=== PATIENT | male | born 1960 | race African-American/Black ===

== ENCOUNTER 2023-01-12 22:10 | Inpatient (IN) | payer OTHER ==
[2023-01-12 22:36] VITALS: BMI 22.1
[2023-01-13] MEDS ORDERED: IBUPROFEN 600 MG TABLET (FP) PO PRN (01:15)
[2023-01-13] MEDS ORDERED: LOPERAMIDE HCL 2 MG CAPSULE PO PRN (01:15)
[2023-01-13] MEDS ORDERED: DICYCLOMINE HCL 10 MG CAPSULE PO PRN (01:15)
[2023-01-13] MEDS ORDERED: BENZOCAINE/MENTHOL (CHLORASEPTIC ) LOZENGE MM PRN (01:15)
[2023-01-13] MEDS ORDERED: POLYETHYLENE GLYCOL (HEALTHYLAX) 3350 17 GM PACKET PO PRN (01:15)
[2023-01-13] MEDS ORDERED: MAGNESIUM HYDROX 2400MG/30ML ORAL SUSPENSION 30 ML CUP PO PRN (01:15)
[2023-01-13] MEDS ORDERED: ONDANSETRON *ODT* 4 MG TABLET SL PRN (01:15)
[2023-01-13] MEDS ORDERED: NICOTINE 7 MG/24 HOURS TOPICAL PATCH TD PRN (01:15)
[2023-01-13] MEDS ORDERED: IBUPROFEN 400 MG TABLET (FP) PO PRN (01:15)
[2023-01-13] MEDS ORDERED: NALOXONE HCL (KLOXXADO) 8 MG SPRAY NS PRN (01:15)
[2023-01-13] MEDS ORDERED: BENZONATATE 200 MG CAPSULE PO PRN (01:15)
[2023-01-13] MEDS ORDERED: BISMUTH SUBSALICYLATE 524 MG/30 ML PO PRN (01:15)
[2023-01-13] MEDS ORDERED: BACLOFEN 10 MG TABLET (FP) PO PRN (01:15)
[2023-01-13] MEDS ORDERED: NALOXONE HCL 0.4 MG/ML VIAL IM PRN (01:15)
[2023-01-13] MEDS ORDERED: ACETAMINOPHEN 325 MG TABLET (FP) PO PRN (01:15)
[2023-01-13] MEDS ORDERED: MAG HYDROX/AL HYDROX/SIMETH 30 ML UNIT-DOSE CUP PO PRN (01:15)
[2023-01-13] MEDS ORDERED: NICOTINE POLACRILEX 4 MG GUM BUC PRN (01:15)
[2023-01-13] MEDS ORDERED: guaiFENesin 600 MG TABLET.ER (FP) PO PRN (01:15)
[2023-01-13] MEDS: hydrOXYzine PAMOATE 25 MG CAPSULE (FP) PO PRN (02:45)
[2023-01-13] MEDS ORDERED: METOPROLOL TARTRATE 25 MG TABLET (FP) ONE (02:59)
[2023-01-13] MEDS: APIXABAN 5 MG TABLET PO SCH ×2 (09:53→23:55)
[2023-01-13] MEDS: FUROSEMIDE 20 MG TABLET (FP) PO SCH (09:53)
[2023-01-13] MEDS: PRENATAL VITAMINS W/ FOLIC ACID TABLET (FP) PO SCH (09:53)
[2023-01-13] MEDS: SPIRONOLACTONE 25 MG TABLET PO SCH (09:53)
[2023-01-13] MEDS: METOPROLOL TARTRATE 50 MG TABLET (FP) PO SCH (09:53)
[2023-01-13] MEDS ORDERED: FUROSEMIDE 20 MG TABLET (FP) PO SCH (10:00)
[2023-01-13] MEDS ORDERED: METOPROLOL TARTRATE 50 MG TABLET (FP) PO SCH (10:00)
[2023-01-13] MEDS ORDERED: LORazepam 1 MG TABLET PO PRN (10:57)
[2023-01-13] MEDS: LORazepam 2 MG TABLET PO SCH ×3 (11:42→23:55)
[2023-01-13] MEDS: MELATONIN 5 MG TABLETS PO SCH (23:55)
[2023-01-13] MEDS: THIAMINE HCL 100 MG TABLET (FP) PO SCH (23:55)
[2023-01-14] MEDS: LORazepam 2 MG TABLET PO SCH ×4 (05:56→22:44)
[2023-01-14] MEDS: METOPROLOL TARTRATE 50 MG TABLET (FP) PO SCH (10:28)
[2023-01-14] MEDS: FUROSEMIDE 20 MG TABLET (FP) PO SCH (10:28)
[2023-01-14] MEDS: APIXABAN 5 MG TABLET PO SCH ×2 (10:28→22:44)
[2023-01-14] MEDS: PRENATAL VITAMINS W/ FOLIC ACID TABLET (FP) PO SCH (10:28)
[2023-01-14] MEDS: SPIRONOLACTONE 25 MG TABLET PO SCH (10:28)
[2023-01-14] MEDS ORDERED: SACUBITRIL/VALSARTAN 49 MG-51 MG TABLET PO SCH (11:30)
[2023-01-14 11:56] LABS: POTASSIUM 3.9 mmol/L (3.5-5.1)
[2023-01-14 11:57] LABS: HEMATOCRIT 43.7 % (35.4-49); HEMOGLOBIN 14.5 GM/dL (11.7-16.9); MCH 29.4 pg (25.7-33.7); MCHC 33.2 g/dl (32.0-35.9); MEAN CELL VOLUME 88.6 fl (80-96); MEAN PLT VOLUME 8.5 fl (7.5-11.1); PLATELET COUNT 187 10^3/uL (134-434); RBC 4.93 M/mm3 (4.00-5.60); RDW 13.5 % (11.9-15.9); WHITE BLOOD COUNT 10.2 K/mm3 (4.0-10.0)
[2023-01-14 12:00] LABS: ALBUMIN 3.3 g/dl (3.4-5.0); BLOOD UREA NITROGEN 18.2 mg/dL (7-18)
[2023-01-14 12:03] LABS: CREATININE 0.9 mg/dL (0.55-1.3)
[2023-01-14 12:04] LABS: BILIRUBIN,TOTAL 0.2 mg/dL (0.2-1); TOT PROT 6.4 g/dl (6.4-8.2)
[2023-01-14] MEDS: THIAMINE HCL 100 MG TABLET (FP) PO SCH (22:44)
[2023-01-14] MEDS: MELATONIN 5 MG TABLETS PO SCH (22:44)
[2023-01-14] MEDS: SACUBITRIL/VALSARTAN 49 MG-51 MG TABLET PO SCH (22:45)
[2023-01-15] MEDS: LORazepam 1 MG TABLET PO SCH ×4 (05:54→22:33)
[2023-01-15] MEDS: SPIRONOLACTONE 25 MG TABLET PO SCH (10:12)
[2023-01-15] MEDS: APIXABAN 5 MG TABLET PO SCH ×2 (10:12→22:32)
[2023-01-15] MEDS: FUROSEMIDE 20 MG TABLET (FP) PO SCH (10:12)
[2023-01-15] MEDS: METOPROLOL TARTRATE 50 MG TABLET (FP) PO SCH (10:13)
[2023-01-15] MEDS: PRENATAL VITAMINS W/ FOLIC ACID TABLET (FP) PO SCH (10:14)
[2023-01-15] MEDS: SACUBITRIL/VALSARTAN 49 MG-51 MG TABLET PO SCH ×2 (10:14→22:31)
[2023-01-15] MEDS: LACTULOSE 20 GM/30 ML UDC (FOR ORAL USE ONLY) PO SCH ×2 (14:02→22:31)
[2023-01-15] MEDS: THIAMINE HCL 100 MG TABLET (FP) PO SCH (22:32)
[2023-01-15] MEDS: MELATONIN 5 MG TABLETS PO SCH (22:32)
[2023-01-16] MEDS ORDERED: LORazepam 0.5 MG TABLET PO PRN
[2023-01-16] MEDS: LORazepam 0.5 MG TABLET PO SCH ×4 (06:00→22:14)
[2023-01-16] MEDS: LACTULOSE 20 GM/30 ML UDC (FOR ORAL USE ONLY) PO SCH ×3 (06:03→22:15)
[2023-01-16] MEDS: FUROSEMIDE 20 MG TABLET (FP) PO SCH (10:08)
[2023-01-16] MEDS: SPIRONOLACTONE 25 MG TABLET PO SCH (10:08)
[2023-01-16] MEDS: PRENATAL VITAMINS W/ FOLIC ACID TABLET (FP) PO SCH (10:08)
[2023-01-16] MEDS: SACUBITRIL/VALSARTAN 49 MG-51 MG TABLET PO SCH ×2 (10:08→22:15)
[2023-01-16] MEDS: APIXABAN 5 MG TABLET PO SCH ×2 (10:08→22:14)
[2023-01-16] MEDS: METOPROLOL TARTRATE 50 MG TABLET (FP) PO SCH (10:08)
[2023-01-16] MEDS ORDERED: cloNIDine HCL 0.1 MG TABLET PO ONE (15:39)
[2023-01-16] MEDS ORDERED: METOPROLOL TARTRATE 25 MG TABLET (FP) PO ONE (18:36)
[2023-01-16] MEDS: MELATONIN 5 MG TABLETS PO SCH (22:14)
[2023-01-16] MEDS: THIAMINE HCL 100 MG TABLET (FP) PO SCH (22:14)
[2023-01-17] MEDS ORDERED: LORazepam 0.5 MG TABLET PO ONE (05:00)
[2023-01-17] MEDS: LACTULOSE 20 GM/30 ML UDC (FOR ORAL USE ONLY) PO SCH (05:15)
[2023-01-17] MEDS: hydrOXYzine PAMOATE 25 MG CAPSULE (FP) PO PRN (05:17)
[2023-01-17 07:10] VITALS: RESP 18
[2023-01-17] MEDS: SPIRONOLACTONE 25 MG TABLET PO SCH (09:18)
[2023-01-17] MEDS: SACUBITRIL/VALSARTAN 49 MG-51 MG TABLET PO SCH (09:18)
[2023-01-17] MEDS: APIXABAN 5 MG TABLET PO SCH (09:18)
[2023-01-17] MEDS: PRENATAL VITAMINS W/ FOLIC ACID TABLET (FP) PO SCH (09:18)
[2023-01-17] MEDS: METOPROLOL TARTRATE 50 MG TABLET (FP) PO SCH (09:18)
[2023-01-17] MEDS: FUROSEMIDE 20 MG TABLET (FP) PO SCH (09:19)
[2023-01-17 09:57] VITALS: BP 134/86; PULSE 85; TEMP 97.5
== END 2023-01-17 11:39 | disposition other institution (70) | DRG 774 ==
LOC: YASAS 22:10 → SUATTDRO 22:10 → Y3N 01-13 02:23
PROVIDERS: ADMIT Allergy & Immunology; ATTEND Surgery
PROC: HZ2ZZZZ Detoxification Services for Substance Abuse Treatment (ICD-10-PCS; principal; 2023-01-13)
DX: F10.230 Alcohol dependence with withdrawal, uncomplicated (principal); F14.20 Cocaine dependence, uncomplicated; F17.210 Nicotine dependence, cigarettes, uncomplicated; E72.20 Disorder of urea cycle metabolism, unspecified; I11.0 Hypertensive heart disease with heart failure; I50.9 Heart failure, unspecified; Z95.810 Presence of automatic (implantable) cardiac defibrillator; Z79.01 Long term (current) use of anticoagulants; Z88.0 Allergy status to penicillin
CPT/HCPCS: 36415; 80053; 80307; 82140; 85027; 86593; 86780; 87635; 87811; 93005; 93010; J0475

== ENCOUNTER 2023-01-17 11:38 | Inpatient (IN) | payer OTHER ==
[2023-01-17] MEDS ORDERED: FLU VACCINE (FLULAVAL) PF 60 MCG/0.5 ML SYRINGE 2023-2024 IM ONE (11:56)
[2023-01-17] MEDS ORDERED: PNEUMOC 20-VAL CONJ-DIP CRM/PF 0.5 ML SYRINGE IM ONE (11:57)
[2023-01-17] MEDS ORDERED: BENZOCAINE/MENTHOL (CHLORASEPTIC ) LOZENGE MM PRN (13:03)
[2023-01-17] MEDS ORDERED: BENZONATATE 200 MG CAPSULE PO PRN (13:03)
[2023-01-17] MEDS ORDERED: AMMONIUM LACTATE 12% LOTION 225 GM BOTTLE TP PRN (13:03)
[2023-01-17] MEDS ORDERED: POLYETHYLENE GLYCOL (HEALTHYLAX) 3350 17 GM PACKET PO PRN (13:03)
[2023-01-17] MEDS ORDERED: BACLOFEN 10 MG TABLET (FP) PO PRN (13:03)
[2023-01-17] MEDS ORDERED: guaiFENesin 600 MG TABLET.ER (FP) PO PRN (13:03)
[2023-01-17] MEDS ORDERED: NALOXONE HCL 0.4 MG/ML VIAL IVPUSH PRN (13:03)
[2023-01-17] MEDS ORDERED: IBUPROFEN 600 MG TABLET (FP) PO PRN (13:03)
[2023-01-17] MEDS ORDERED: MAG HYDROX/AL HYDROX/SIMETH 30 ML UNIT-DOSE CUP PO PRN (13:03)
[2023-01-17] MEDS ORDERED: IBUPROFEN 400 MG TABLET (FP) PO PRN (13:03)
[2023-01-17] MEDS ORDERED: ACETAMINOPHEN 325 MG TABLET (FP) PO PRN (13:03)
[2023-01-17] MEDS ORDERED: NICOTINE POLACRILEX 4 MG GUM BUC PRN (13:03)
[2023-01-17] MEDS ORDERED: MAGNESIUM HYDROX 2400MG/30ML ORAL SUSPENSION 30 ML CUP PO PRN (13:03)
[2023-01-17] MEDS ORDERED: hydrOXYzine PAMOATE 25 MG CAPSULE (FP) PO PRN (13:03)
[2023-01-17] MEDS ORDERED: NALOXONE HCL (KLOXXADO) 8 MG SPRAY NS PRN (13:03)
[2023-01-17] MEDS ORDERED: LOPERAMIDE HCL 2 MG CAPSULE PO PRN (13:03)
[2023-01-17] MEDS ORDERED: NICOTINE 14 MG/24 HOURS TOPICAL PATCH TD PRN (13:03)
[2023-01-17] MEDS ORDERED: ALBUTEROL SO4 HFA INHALER IH PRN (13:06)
[2023-01-17] MEDS: LACTULOSE 20 GM/30 ML UDC (FOR ORAL USE ONLY) PO SCH ×2 (14:26→21:22)
[2023-01-17] MEDS: MELATONIN 5 MG TABLETS PO SCH (21:21)
[2023-01-17] MEDS: THIAMINE HCL 100 MG TABLET (FP) PO SCH (21:21)
[2023-01-17] MEDS: APIXABAN 5 MG TABLET PO SCH (21:22)
[2023-01-17] MEDS: SACUBITRIL/VALSARTAN 49 MG-51 MG TABLET PO SCH (21:22)
[2023-01-18] MEDS: LACTULOSE 20 GM/30 ML UDC (FOR ORAL USE ONLY) PO SCH ×3 (07:06→21:16)
[2023-01-18] MEDS: APIXABAN 5 MG TABLET PO SCH ×2 (10:49→21:16)
[2023-01-18] MEDS: SACUBITRIL/VALSARTAN 49 MG-51 MG TABLET PO SCH ×2 (10:49→21:17)
[2023-01-18] MEDS: SPIRONOLACTONE 25 MG TABLET PO SCH (10:49)
[2023-01-18] MEDS: METOPROLOL TARTRATE 50 MG TABLET (FP) PO SCH (10:50)
[2023-01-18] MEDS: PRENATAL VITAMINS W/ FOLIC ACID TABLET (FP) PO SCH (10:50)
[2023-01-18] MEDS: FUROSEMIDE 20 MG TABLET (FP) PO SCH (10:50)
[2023-01-18] MEDS ORDERED: PNEUMOC 20-VAL CONJ-DIP CRM/PF 0.5 ML SYRINGE IM ONE (12:00)
[2023-01-18] MEDS ORDERED: FLU VACCINE (FLULAVAL) PF 60 MCG/0.5 ML SYRINGE 2023-2024 IM ONE (12:00)
[2023-01-18 13:44] LABS: HIV INTERPRETATION NEGATIVE (NEGATIVE)
[2023-01-18] MEDS: THIAMINE HCL 100 MG TABLET (FP) PO SCH (21:16)
[2023-01-18] MEDS: MELATONIN 5 MG TABLETS PO SCH (21:17)
[2023-01-19] MEDS: LACTULOSE 20 GM/30 ML UDC (FOR ORAL USE ONLY) PO SCH ×3 (06:22→21:21)
[2023-01-19] MEDS: APIXABAN 5 MG TABLET PO SCH ×2 (10:05→21:20)
[2023-01-19] MEDS: SPIRONOLACTONE 25 MG TABLET PO SCH (10:05)
[2023-01-19] MEDS: FUROSEMIDE 20 MG TABLET (FP) PO SCH (10:06)
[2023-01-19] MEDS: SACUBITRIL/VALSARTAN 49 MG-51 MG TABLET PO SCH ×2 (10:06→21:21)
[2023-01-19] MEDS: METOPROLOL TARTRATE 50 MG TABLET (FP) PO SCH (10:06)
[2023-01-19] MEDS: PRENATAL VITAMINS W/ FOLIC ACID TABLET (FP) PO SCH (10:07)
[2023-01-19] MEDS: MELATONIN 5 MG TABLETS PO SCH (21:20)
[2023-01-19] MEDS: THIAMINE HCL 100 MG TABLET (FP) PO SCH (21:20)
[2023-01-20] MEDS: LACTULOSE 20 GM/30 ML UDC (FOR ORAL USE ONLY) PO SCH ×3 (06:21→21:11)
[2023-01-20] MEDS: SACUBITRIL/VALSARTAN 49 MG-51 MG TABLET PO SCH ×2 (10:26→21:11)
[2023-01-20] MEDS: FUROSEMIDE 20 MG TABLET (FP) PO SCH (10:26)
[2023-01-20] MEDS: APIXABAN 5 MG TABLET PO SCH ×2 (10:26→21:11)
[2023-01-20] MEDS: SPIRONOLACTONE 25 MG TABLET PO SCH (10:26)
[2023-01-20] MEDS: METOPROLOL TARTRATE 50 MG TABLET (FP) PO SCH (10:26)
[2023-01-20] MEDS: PRENATAL VITAMINS W/ FOLIC ACID TABLET (FP) PO SCH (10:26)
[2023-01-20] MEDS: THIAMINE HCL 100 MG TABLET (FP) PO SCH (21:11)
[2023-01-20] MEDS: MELATONIN 5 MG TABLETS PO SCH (21:11)
[2023-01-21] MEDS: LACTULOSE 20 GM/30 ML UDC (FOR ORAL USE ONLY) PO SCH ×3 (06:36→21:22)
[2023-01-21] MEDS: APIXABAN 5 MG TABLET PO SCH ×2 (09:49→21:21)
[2023-01-21] MEDS: SPIRONOLACTONE 25 MG TABLET PO SCH (09:49)
[2023-01-21] MEDS: PRENATAL VITAMINS W/ FOLIC ACID TABLET (FP) PO SCH (09:49)
[2023-01-21] MEDS: METOPROLOL TARTRATE 50 MG TABLET (FP) PO SCH (09:49)
[2023-01-21] MEDS: SACUBITRIL/VALSARTAN 49 MG-51 MG TABLET PO SCH ×2 (09:50→21:22)
[2023-01-21] MEDS: FUROSEMIDE 20 MG TABLET (FP) PO SCH (09:51)
[2023-01-21] MEDS: THIAMINE HCL 100 MG TABLET (FP) PO SCH (21:21)
[2023-01-21] MEDS: MELATONIN 5 MG TABLETS PO SCH (21:21)
[2023-01-22] MEDS: LACTULOSE 20 GM/30 ML UDC (FOR ORAL USE ONLY) PO SCH ×3 (06:13→21:38)
[2023-01-22] MEDS: SPIRONOLACTONE 25 MG TABLET PO SCH (09:59)
[2023-01-22] MEDS: METOPROLOL TARTRATE 50 MG TABLET (FP) PO SCH (09:59)
[2023-01-22] MEDS: APIXABAN 5 MG TABLET PO SCH ×2 (09:59→21:39)
[2023-01-22] MEDS: FUROSEMIDE 20 MG TABLET (FP) PO SCH (10:00)
[2023-01-22] MEDS: SACUBITRIL/VALSARTAN 49 MG-51 MG TABLET PO SCH ×2 (10:00→21:38)
[2023-01-22] MEDS: PRENATAL VITAMINS W/ FOLIC ACID TABLET (FP) PO SCH (10:00)
[2023-01-22] MEDS: THIAMINE HCL 100 MG TABLET (FP) PO SCH (21:38)
[2023-01-22] MEDS: MELATONIN 5 MG TABLETS PO SCH (21:38)
[2023-01-23] MEDS: LACTULOSE 20 GM/30 ML UDC (FOR ORAL USE ONLY) PO SCH ×3 (06:23→21:27)
[2023-01-23] MEDS: FUROSEMIDE 20 MG TABLET (FP) PO SCH (09:44)
[2023-01-23] MEDS: APIXABAN 5 MG TABLET PO SCH ×2 (09:44→21:27)
[2023-01-23] MEDS: SPIRONOLACTONE 25 MG TABLET PO SCH (09:44)
[2023-01-23] MEDS: PRENATAL VITAMINS W/ FOLIC ACID TABLET (FP) PO SCH (09:45)
[2023-01-23] MEDS: METOPROLOL TARTRATE 50 MG TABLET (FP) PO SCH (09:45)
[2023-01-23] MEDS: SACUBITRIL/VALSARTAN 49 MG-51 MG TABLET PO SCH ×2 (09:45→21:27)
[2023-01-23] MEDS: COLLOIDAL OATMEAL 1 BAR EACH TP PRN (18:03)
[2023-01-23] MEDS: THIAMINE HCL 100 MG TABLET (FP) PO SCH (21:26)
[2023-01-23] MEDS: MELATONIN 5 MG TABLETS PO SCH (21:26)
[2023-01-24] MEDS: LACTULOSE 20 GM/30 ML UDC (FOR ORAL USE ONLY) PO SCH ×3 (06:12→21:14)
[2023-01-24] MEDS: METOPROLOL TARTRATE 50 MG TABLET (FP) PO SCH (10:24)
[2023-01-24] MEDS: SACUBITRIL/VALSARTAN 49 MG-51 MG TABLET PO SCH ×2 (10:24→21:15)
[2023-01-24] MEDS: APIXABAN 5 MG TABLET PO SCH ×2 (10:25→21:14)
[2023-01-24] MEDS: FUROSEMIDE 20 MG TABLET (FP) PO SCH (10:25)
[2023-01-24] MEDS: SPIRONOLACTONE 25 MG TABLET PO SCH (10:26)
[2023-01-24] MEDS: PRENATAL VITAMINS W/ FOLIC ACID TABLET (FP) PO SCH (10:26)
[2023-01-24] MEDS: MELATONIN 5 MG TABLETS PO SCH (21:14)
[2023-01-24] MEDS: THIAMINE HCL 100 MG TABLET (FP) PO SCH (21:14)
[2023-01-25] MEDS: LACTULOSE 20 GM/30 ML UDC (FOR ORAL USE ONLY) PO SCH ×3 (06:05→21:12)
[2023-01-25] MEDS: SACUBITRIL/VALSARTAN 49 MG-51 MG TABLET PO SCH ×2 (09:54→21:12)
[2023-01-25] MEDS: FUROSEMIDE 20 MG TABLET (FP) PO SCH (09:54)
[2023-01-25] MEDS: APIXABAN 5 MG TABLET PO SCH ×2 (09:54→21:12)
[2023-01-25] MEDS: SPIRONOLACTONE 25 MG TABLET PO SCH (09:54)
[2023-01-25] MEDS: METOPROLOL TARTRATE 50 MG TABLET (FP) PO SCH (09:55)
[2023-01-25] MEDS: PRENATAL VITAMINS W/ FOLIC ACID TABLET (FP) PO SCH (09:55)
[2023-01-25] MEDS: THIAMINE HCL 100 MG TABLET (FP) PO SCH (21:12)
[2023-01-25] MEDS: MELATONIN 5 MG TABLETS PO SCH (21:12)
[2023-01-26] MEDS: LACTULOSE 20 GM/30 ML UDC (FOR ORAL USE ONLY) PO SCH ×3 (06:35→21:21)
[2023-01-26] MEDS: METOPROLOL TARTRATE 50 MG TABLET (FP) PO SCH (09:33)
[2023-01-26] MEDS: SPIRONOLACTONE 25 MG TABLET PO SCH (09:33)
[2023-01-26] MEDS: SACUBITRIL/VALSARTAN 49 MG-51 MG TABLET PO SCH ×2 (09:33→21:21)
[2023-01-26] MEDS: PRENATAL VITAMINS W/ FOLIC ACID TABLET (FP) PO SCH (09:33)
[2023-01-26] MEDS: APIXABAN 5 MG TABLET PO SCH ×2 (09:33→21:21)
[2023-01-26] MEDS: FUROSEMIDE 20 MG TABLET (FP) PO SCH (09:33)
[2023-01-26] MEDS: THIAMINE HCL 100 MG TABLET (FP) PO SCH (21:21)
[2023-01-26] MEDS: MELATONIN 5 MG TABLETS PO SCH (21:22)
[2023-01-26] MEDS: COLLOIDAL OATMEAL 1 BAR EACH TP PRN (21:24)
[2023-01-27] MEDS: LACTULOSE 20 GM/30 ML UDC (FOR ORAL USE ONLY) PO SCH ×3 (06:37→21:39)
[2023-01-27] MEDS: PRENATAL VITAMINS W/ FOLIC ACID TABLET (FP) PO SCH (09:33)
[2023-01-27] MEDS: FUROSEMIDE 20 MG TABLET (FP) PO SCH (09:33)
[2023-01-27] MEDS: SPIRONOLACTONE 25 MG TABLET PO SCH (09:33)
[2023-01-27] MEDS: APIXABAN 5 MG TABLET PO SCH ×2 (09:33→21:39)
[2023-01-27] MEDS: METOPROLOL TARTRATE 50 MG TABLET (FP) PO SCH (09:33)
[2023-01-27] MEDS: SACUBITRIL/VALSARTAN 49 MG-51 MG TABLET PO SCH ×2 (09:33→21:39)
[2023-01-27] MEDS: THIAMINE HCL 100 MG TABLET (FP) PO SCH (21:39)
[2023-01-27] MEDS: MELATONIN 5 MG TABLETS PO SCH (21:39)
[2023-01-28] MEDS: LACTULOSE 20 GM/30 ML UDC (FOR ORAL USE ONLY) PO SCH ×3 (06:07→21:55)
[2023-01-28] MEDS: SACUBITRIL/VALSARTAN 49 MG-51 MG TABLET PO SCH ×2 (09:53→21:55)
[2023-01-28] MEDS: SPIRONOLACTONE 25 MG TABLET PO SCH (09:53)
[2023-01-28] MEDS: APIXABAN 5 MG TABLET PO SCH ×2 (09:53→21:55)
[2023-01-28] MEDS: PRENATAL VITAMINS W/ FOLIC ACID TABLET (FP) PO SCH (09:54)
[2023-01-28] MEDS: FUROSEMIDE 20 MG TABLET (FP) PO SCH (09:54)
[2023-01-28] MEDS: METOPROLOL TARTRATE 50 MG TABLET (FP) PO SCH (09:54)
[2023-01-28] MEDS: THIAMINE HCL 100 MG TABLET (FP) PO SCH (21:55)
[2023-01-28] MEDS: MELATONIN 5 MG TABLETS PO SCH (21:55)
[2023-01-29] MEDS: LACTULOSE 20 GM/30 ML UDC (FOR ORAL USE ONLY) PO SCH ×3 (06:49→21:52)
[2023-01-29] MEDS: SPIRONOLACTONE 25 MG TABLET PO SCH (09:36)
[2023-01-29] MEDS: METOPROLOL TARTRATE 50 MG TABLET (FP) PO SCH (09:37)
[2023-01-29] MEDS: FUROSEMIDE 20 MG TABLET (FP) PO SCH (09:37)
[2023-01-29] MEDS: SACUBITRIL/VALSARTAN 49 MG-51 MG TABLET PO SCH ×2 (09:37→21:52)
[2023-01-29] MEDS: APIXABAN 5 MG TABLET PO SCH ×2 (09:37→21:51)
[2023-01-29] MEDS: PRENATAL VITAMINS W/ FOLIC ACID TABLET (FP) PO SCH (09:38)
[2023-01-29] MEDS: MELATONIN 5 MG TABLETS PO SCH (21:51)
[2023-01-29] MEDS: THIAMINE HCL 100 MG TABLET (FP) PO SCH (21:51)
[2023-01-30] MEDS: LACTULOSE 20 GM/30 ML UDC (FOR ORAL USE ONLY) PO SCH (06:53)
[2023-01-30 09:08] VITALS: BP 130/93; PULSE 102; RESP 18; TEMP 97.3
[2023-01-30] MEDS: SPIRONOLACTONE 25 MG TABLET PO SCH (09:08)
[2023-01-30] MEDS: PRENATAL VITAMINS W/ FOLIC ACID TABLET (FP) PO SCH (09:09)
[2023-01-30] MEDS: APIXABAN 5 MG TABLET PO SCH (09:09)
[2023-01-30] MEDS: SACUBITRIL/VALSARTAN 49 MG-51 MG TABLET PO SCH (09:09)
[2023-01-30] MEDS: METOPROLOL TARTRATE 50 MG TABLET (FP) PO SCH (09:09)
[2023-01-30] MEDS: FUROSEMIDE 20 MG TABLET (FP) PO SCH (09:10)
== END 2023-01-30 09:25 | disposition home or self-care (01) | DRG 772 ==
LOC: YASAS 11:38 → Y3E 11:39
PROVIDERS: ADMIT Allergy & Immunology; ATTEND Psychiatry & Neurology Pain Medicine
PROC: HZ42ZZZ Group Counseling for Substance Abuse Treatment, Cognitive-Behavioral (ICD-10-PCS; principal; 2023-01-17)
DX: F10.20 Alcohol dependence, uncomplicated (principal); F14.20 Cocaine dependence, uncomplicated; F17.210 Nicotine dependence, cigarettes, uncomplicated; E72.20 Disorder of urea cycle metabolism, unspecified; I11.0 Hypertensive heart disease with heart failure; I50.9 Heart failure, unspecified; R21 Rash and other nonspecific skin eruption; Z95.810 Presence of automatic (implantable) cardiac defibrillator; Z88.0 Allergy status to penicillin; Z59.01 Sheltered homelessness
CPT/HCPCS: 36415; 82140; 87389; 90677; 90686; 93005; 93010; G0008; J0475

== ENCOUNTER 2023-04-28 20:04 | Inpatient (IN) | payer OTHER ==
[2023-04-28 20:31] VITALS: BMI 21.7
[2023-04-28] MEDS ORDERED: POLYETHYLENE GLYCOL (HEALTHYLAX) 3350 17 GM PACKET PO PRN (21:07)
[2023-04-28] MEDS ORDERED: NALOXONE HCL (KLOXXADO) 8 MG SPRAY NS PRN (21:07)
[2023-04-28] MEDS ORDERED: MAG HYDROX/AL HYDROX/SIMETH 30 ML UNIT-DOSE CUP PO PRN (21:07)
[2023-04-28] MEDS ORDERED: MAGNESIUM HYDROX 2400MG/30ML ORAL SUSPENSION 30 ML CUP PO PRN (21:07)
[2023-04-28] MEDS ORDERED: BENZONATATE 200 MG CAPSULE PO PRN (21:07)
[2023-04-28] MEDS ORDERED: BENZOCAINE/MENTHOL (CHLORASEPTIC ) LOZENGE MM PRN (21:07)
[2023-04-28] MEDS ORDERED: NICOTINE POLACRILEX 2 MG LOZENGE BC PRN (21:07)
[2023-04-28] MEDS ORDERED: DICYCLOMINE HCL 10 MG CAPSULE PO PRN (21:07)
[2023-04-28] MEDS ORDERED: ACETAMINOPHEN 325 MG TABLET (FP) PO PRN (21:07)
[2023-04-28] MEDS ORDERED: NALOXONE HCL 0.4 MG/ML VIAL IM PRN (21:07)
[2023-04-28] MEDS ORDERED: LOPERAMIDE HCL 2 MG CAPSULE PO PRN (21:07)
[2023-04-28] MEDS ORDERED: guaiFENesin 600 MG TABLET.ER (FP) PO PRN (21:07)
[2023-04-28] MEDS ORDERED: ONDANSETRON *ODT* 4 MG TABLET SL PRN (21:07)
[2023-04-28] MEDS: APIXABAN 5 MG TABLET PO SCH (23:14)
[2023-04-28] MEDS: MELATONIN 5 MG TABLETS PO SCH (23:16)
[2023-04-28] MEDS: THIAMINE HCL 100 MG TABLET (FP) PO SCH (23:16)
[2023-04-28] MEDS: CARVEDILOL 3.125 MG TABLET (FP) PO SCH (23:26)
[2023-04-29] MEDS: SACUBITRIL/VALSARTAN 49 MG-51 MG TABLET PO SCH (00:04)
[2023-04-29] MEDS ORDERED: chlordiazePOXIDE HCL 25 MG CAPSULE PO PRN (10:40)
[2023-04-29 10:46] LABS: HEMATOCRIT 36.4 % (35.4-49); HEMOGLOBIN 12.4 GM/dL (11.7-16.9); MCH 30.2 pg (25.7-33.7); MCHC 33.9 g/dl (32.0-35.9); MEAN CELL VOLUME 88.9 fl (80-96); MEAN PLT VOLUME 8.2 fl (7.5-11.1); PLATELET COUNT 177 10^3/uL (134-434); RDW 13.7 % (11.9-15.9); WHITE BLOOD COUNT 7.6 K/mm3 (4.0-10.0)
[2023-04-29 10:47] LABS: CHLORIDE 107 mmol/L (98-107); POTASSIUM 4.1 mmol/L (3.5-5.1); SODIUM 142 mmol/L (136-145)
[2023-04-29 10:51] LABS: ALBUMIN 2.9 g/dl (3.4-5.0); ANION GAP 6 mmol/L (4-13); CALCIUM 8.2 mg/dL (8.5-10.1); CO2 29 mmol/L (21-32); GLUCOSE,RANDOM 113 mg/dL (74-106)
[2023-04-29 10:52] LABS: BLOOD UREA NITROGEN 17.6 mg/dL (7-18)
[2023-04-29 10:54] LABS: CREATININE 0.9 mg/dL (0.55-1.3); SGOT/AST 14 U/L (15-37); SGPT/ALT 18 U/L (13-61)
[2023-04-29] MEDS: PRENATAL VITAMINS W/ FOLIC ACID TABLET (FP) PO SCH (10:54)
[2023-04-29] MEDS: NICOTINE 14 MG/24 HOURS TOPICAL PATCH TD SCH (10:54)
[2023-04-29] MEDS: SPIRONOLACTONE 25 MG TABLET PO SCH (10:55)
[2023-04-29] MEDS: FUROSEMIDE 20 MG TABLET (FP) PO SCH (10:55)
[2023-04-29 10:56] LABS: BILIRUBIN,TOTAL 0.3 mg/dL (0.2-1); TOT PROT 5.9 g/dl (6.4-8.2)
[2023-04-29 10:57] LABS: ALK PHOS 103 U/L (45-117)
[2023-04-29] MEDS: chlordiazePOXIDE HCL 25 MG CAPSULE PO SCH (10:57)
[2023-04-29] MEDS ORDERED: LORazepam 1 MG TABLET PO PRN (12:09)
[2023-04-29] MEDS: LORazepam 2 MG TABLET PO SCH (17:20)
[2023-04-29] MEDS: MELATONIN 5 MG TABLETS PO SCH (22:06)
[2023-05-01] MEDS ORDERED: LORazepam 0.5 MG TABLET PO PRN
[2023-05-01] MEDS ORDERED: chlordiazePOXIDE HCL 25 MG CAPSULE PO SCH (05:00)
[2023-05-01] MEDS: LORazepam 1 MG TABLET PO SCH (05:17)
[2023-05-01] MEDS: LACTULOSE 20 GM/30 ML UDC (FOR ORAL USE ONLY) PO SCH (13:24)
[2023-05-02] MEDS ORDERED: chlordiazePOXIDE HCL 10 MG CAPSULE PO PRN
[2023-05-02] MEDS ORDERED: chlordiazePOXIDE HCL 10 MG CAPSULE PO SCH (05:00)
[2023-05-02] MEDS: LORazepam 0.5 MG TABLET PO SCH (05:31)
[2023-05-02] MEDS: LIDOCAINE 4% PATCH TP SCH (11:40)
[2023-05-02] MEDS: LIDOCAINE PATCH REMOVAL MC SCH (22:13)
[2023-05-03] MEDS ORDERED: chlordiazePOXIDE HCL 10 MG CAPSULE PO SCH (05:00)
[2023-05-03 09:35] VITALS: BP 121/95; PULSE 94; RESP 18; TEMP 98
[2023-05-04] MEDS ORDERED: chlordiazePOXIDE HCL 10 MG CAPSULE PO ONE (05:00)
== END 2023-05-03 12:30 | disposition other institution (70) | DRG 774 ==
LOC: YASAS 20:04 → Y6N 21:38
PROVIDERS: ADMIT Allergy & Immunology; ATTEND Surgery
PROC: HZ2ZZZZ Detoxification Services for Substance Abuse Treatment (ICD-10-PCS; principal; 2023-04-28)
DX: F10.230 Alcohol dependence with withdrawal, uncomplicated (principal); F14.20 Cocaine dependence, uncomplicated; F12.20 Cannabis dependence, uncomplicated; F17.210 Nicotine dependence, cigarettes, uncomplicated; F19.282 Other psychoactive substance dependence with psychoactive substance-induced sleep disorder; F19.24 Other psychoactive substance dependence with psychoactive substance-induced mood disorder; I11.0 Hypertensive heart disease with heart failure; I50.9 Heart failure, unspecified; G47.30 Sleep apnea, unspecified; Z79.01 Long term (current) use of anticoagulants; Z91.148 Patient's other noncompliance with medication regimen for other reason; Z95.810 Presence of automatic (implantable) cardiac defibrillator
CPT/HCPCS: 36415; 71046-TC-FY; 80053; 80305; 80307; 82140; 85027; 86593; 86780; 87635; 93005; 93010

== ENCOUNTER 2023-05-03 12:43 | Inpatient (IN) | payer OTHER ==
[2023-05-03] MEDS ORDERED: BENZOCAINE/MENTHOL (CHLORASEPTIC ) LOZENGE MM PRN (15:13)
[2023-05-03] MEDS ORDERED: P-EPHED 60MG/TRIPROLIDI 2.5MG TABLET PO PRN (15:13)
[2023-05-03] MEDS ORDERED: MAGNESIUM HYDROX 2400MG/30ML ORAL SUSPENSION 30 ML CUP PO PRN (15:13)
[2023-05-03] MEDS ORDERED: METHOCARBAMOL 500 MG TABLET PO PRN (15:13)
[2023-05-03] MEDS ORDERED: LOPERAMIDE HCL 2 MG CAPSULE PO PRN (15:13)
[2023-05-03] MEDS ORDERED: BENZONATATE 200 MG CAPSULE PO PRN (15:13)
[2023-05-03] MEDS ORDERED: guaiFENesin 600 MG TABLET.ER (FP) PO PRN (15:13)
[2023-05-03] MEDS ORDERED: MAG HYDROX/AL HYDROX/SIMETH 30 ML UNIT-DOSE CUP PO PRN (15:13)
[2023-05-03] MEDS ORDERED: POLYETHYLENE GLYCOL (HEALTHYLAX) 3350 17 GM PACKET PO PRN (15:13)
[2023-05-03] MEDS ORDERED: ACETAMINOPHEN 325 MG TABLET (FP) PO PRN (15:13)
[2023-05-03] MEDS: MELATONIN 5 MG TABLETS PO SCH (21:55)
[2023-05-03] MEDS: APIXABAN 5 MG TABLET PO SCH (21:55)
[2023-05-03] MEDS: SACUBITRIL/VALSARTAN 49 MG-51 MG TABLET PO SCH (21:55)
[2023-05-03] MEDS: CARVEDILOL 3.125 MG TABLET (FP) PO SCH (21:55)
[2023-05-03] MEDS: THIAMINE HCL 100 MG TABLET (FP) PO SCH (21:55)
[2023-05-03] MEDS: LACTULOSE 20 GM/30 ML UDC (FOR ORAL USE ONLY) PO SCH (21:55)
[2023-05-03] MEDS: LIDOCAINE PATCH REMOVAL MC SCH (23:03)
[2023-05-04] MEDS: SPIRONOLACTONE 25 MG TABLET PO SCH (10:24)
[2023-05-04] MEDS: FUROSEMIDE 40 MG TABLET (FP) PO SCH (10:25)
[2023-05-04] MEDS: PRENATAL VITAMINS W/ FOLIC ACID TABLET (FP) PO SCH (10:25)
[2023-05-04] MEDS: EMPAGLIFLOZIN (JARDIANCE) 10 MG TABLET PO SCH (10:27)
[2023-05-04] MEDS: LIDOCAINE 4% PATCH TP SCH (10:29)
[2023-05-04 11:30] LABS: HIV INTERPRETATION NEGATIVE (NEGATIVE)
[2023-05-08] MEDS: DOCUSATE SODIUM 100 MG CAPSULE (FP) PO PRN (10:09)
[2023-05-08] MEDS: MELATONIN 5 MG TABLETS PO SCH (21:29)
[2023-05-09] MEDS: QUEtiapine FUMARATE 25 MG TABLET PO SCH (21:38)
[2023-05-15 22:32] VITALS: RESP 18
[2023-05-17 07:06] VITALS: BP 116/74; PULSE 80; TEMP 96.6
== END 2023-05-17 09:50 | disposition home or self-care (01) | DRG 772 ==
LOC: YASAS 12:43 → Y5N 12:45
PROVIDERS: ADMIT Allergy & Immunology; ATTEND Psychiatry & Neurology Pain Medicine
PROC: HZ42ZZZ Group Counseling for Substance Abuse Treatment, Cognitive-Behavioral (ICD-10-PCS; principal; 2023-05-03)
DX: F10.20 Alcohol dependence, uncomplicated (principal); F11.10 Opioid abuse, uncomplicated; F14.20 Cocaine dependence, uncomplicated; F12.20 Cannabis dependence, uncomplicated; F17.210 Nicotine dependence, cigarettes, uncomplicated; I11.0 Hypertensive heart disease with heart failure; I50.9 Heart failure, unspecified; I42.9 Cardiomyopathy, unspecified; G47.30 Sleep apnea, unspecified; Z95.810 Presence of automatic (implantable) cardiac defibrillator; Z59.01 Sheltered homelessness; Z86.19 Personal history of other infectious and parasitic diseases; Z88.0 Allergy status to penicillin
CPT/HCPCS: 36415; 82140; 87389

== ENCOUNTER 2023-06-11 09:01 | Inpatient (IN) | payer OTHER ==
[2023-06-11 09:24] VITALS: BMI 23.7
[2023-06-11] MEDS ORDERED: guaiFENesin 600 MG TABLET.ER (FP) PO PRN (11:35)
[2023-06-11] MEDS ORDERED: hydrOXYzine PAMOATE 25 MG CAPSULE (FP) PO PRN (11:35)
[2023-06-11] MEDS ORDERED: ONDANSETRON *ODT* 4 MG TABLET SL PRN (11:35)
[2023-06-11] MEDS ORDERED: DICYCLOMINE HCL 10 MG CAPSULE PO PRN (11:35)
[2023-06-11] MEDS ORDERED: NALOXONE HCL (KLOXXADO) 8 MG SPRAY NS PRN (11:35)
[2023-06-11] MEDS ORDERED: NALOXONE HCL 0.4 MG/ML VIAL IM PRN (11:35)
[2023-06-11] MEDS ORDERED: LOPERAMIDE HCL 2 MG CAPSULE PO PRN (11:35)
[2023-06-11] MEDS ORDERED: POLYETHYLENE GLYCOL (HEALTHYLAX) 3350 17 GM PACKET PO PRN (11:35)
[2023-06-11] MEDS ORDERED: BISMUTH SUBSALICYLATE 524 MG/30 ML PO PRN (11:35)
[2023-06-11] MEDS ORDERED: BENZONATATE 200 MG CAPSULE PO PRN (11:35)
[2023-06-11] MEDS ORDERED: ACETAMINOPHEN 325 MG TABLET (FP) PO PRN (11:35)
[2023-06-11] MEDS ORDERED: BENZOCAINE/MENTHOL (CHLORASEPTIC ) LOZENGE MM PRN (11:35)
[2023-06-11] MEDS ORDERED: IBUPROFEN 400 MG TABLET (FP) PO PRN (11:35)
[2023-06-11] MEDS ORDERED: IBUPROFEN 600 MG TABLET (FP) PO PRN (11:35)
[2023-06-11] MEDS ORDERED: MAGNESIUM HYDROX 2400MG/30ML ORAL SUSPENSION 30 ML CUP PO PRN (11:35)
[2023-06-11] MEDS ORDERED: MAG HYDROX/AL HYDROX/SIMETH 30 ML UNIT-DOSE CUP PO PRN (11:35)
[2023-06-11] MEDS: EMPAGLIFLOZIN (JARDIANCE) 10 MG TABLET PO SCH (14:48)
[2023-06-11] MEDS: METHOCARBAMOL 500 MG TABLET PO PRN (14:49)
[2023-06-11] MEDS: LACTULOSE 20 GM/30 ML UDC (FOR ORAL USE ONLY) PO SCH (14:49)
[2023-06-11] MEDS: PRENATAL VITAMINS W/ FOLIC ACID TABLET (FP) PO SCH (14:49)
[2023-06-11] MEDS: LORazepam 1 MG TABLET PO PRN (14:50)
[2023-06-11] MEDS: NICOTINE 7 MG/24 HOURS TOPICAL PATCH TD SCH (14:54)
[2023-06-11] MEDS: LORazepam 2 MG TABLET PO SCH (17:19)
[2023-06-11] MEDS: CARVEDILOL 3.125 MG TABLET (FP) PO SCH (22:32)
[2023-06-11] MEDS: QUEtiapine FUMARATE 25 MG TABLET PO SCH (22:32)
[2023-06-11] MEDS: THIAMINE HCL 100 MG TABLET (FP) PO SCH (22:32)
[2023-06-11] MEDS: APIXABAN 5 MG TABLET PO SCH (22:33)
[2023-06-11] MEDS: SACUBITRIL/VALSARTAN 49 MG-51 MG TABLET PO SCH (22:34)
[2023-06-11] MEDS: MELATONIN 5 MG TABLETS PO SCH (22:42)
[2023-06-12] MEDS: FUROSEMIDE 40 MG TABLET (FP) PO SCH (10:22)
[2023-06-12 12:08] LABS: POTASSIUM 4.4 mmol/L (3.5-5.1)
[2023-06-12 12:23] LABS: BLOOD UREA NITROGEN 11.9 mg/dL (7-18); CALCIUM 8.3 mg/dL (8.5-10.1); CREATININE 0.8 mg/dL (0.55-1.3)
[2023-06-12 12:25] LABS: BILIRUBIN,TOTAL 0.2 mg/dL (0.2-1); HEMATOCRIT 40.2 % (35.4-49); HEMOGLOBIN 13.5 GM/dL (11.7-16.9); MCH 29.9 pg (25.7-33.7); MCHC 33.6 g/dl (32.0-35.9); MEAN PLT VOLUME 8.4 fl (7.5-11.1); PLATELET COUNT 160 10^3/uL (134-434); RBC 4.52 M/mm3 (4.00-5.60); RDW 13.7 % (11.9-15.9); WHITE BLOOD COUNT 7.2 K/mm3 (4.0-10.0)
[2023-06-12 12:27] LABS: ALBUMIN 2.9 g/dl (3.4-5.0)
[2023-06-13] MEDS: LORazepam 1 MG TABLET PO SCH (05:30)
[2023-06-14] MEDS ORDERED: LORazepam 0.5 MG TABLET PO PRN
[2023-06-14] MEDS: LORazepam 0.5 MG TABLET PO SCH (05:27)
[2023-06-15] MEDS: LORazepam 0.5 MG TABLET PO ONE (05:43)
[2023-06-15 07:04] VITALS: BP 123/88; PULSE 75; RESP 18; TEMP 97.3
== END 2023-06-15 09:16 | disposition home or self-care (01) | DRG 897 ==
LOC: YASAS 09:01 → Y6N 12:53
PROVIDERS: ADMIT Allergy & Immunology; ATTEND Surgery
PROC: HZ2ZZZZ Detoxification Services for Substance Abuse Treatment (ICD-10-PCS; principal; 2023-06-11)
DX: F10.230 Alcohol dependence with withdrawal, uncomplicated (principal); F14.20 Cocaine dependence, uncomplicated; E72.20 Disorder of urea cycle metabolism, unspecified; F17.210 Nicotine dependence, cigarettes, uncomplicated; I25.10 Atherosclerotic heart disease of native coronary artery without angina pectoris; I11.0 Hypertensive heart disease with heart failure; I50.9 Heart failure, unspecified; E11.9 Type 2 diabetes mellitus without complications; Z79.84 Long term (current) use of oral hypoglycemic drugs; R76.8 Other specified abnormal immunological findings in serum; Z86.19 Personal history of other infectious and parasitic diseases; Z95.810 Presence of automatic (implantable) cardiac defibrillator; Z88.0 Allergy status to penicillin
CPT/HCPCS: 36415; 80053; 80305; 80307; 82140; 85027; 86593; 86780; 93005; 93010

== ENCOUNTER 2023-06-19 08:16 | Inpatient (IN) | payer OTHER ==
[2023-06-19] MEDS ORDERED: BENZONATATE 200 MG CAPSULE PO PRN (08:47)
[2023-06-19] MEDS ORDERED: LOPERAMIDE HCL 2 MG CAPSULE PO PRN (08:47)
[2023-06-19] MEDS ORDERED: MAGNESIUM HYDROX 2400MG/30ML ORAL SUSPENSION 30 ML CUP PO PRN (08:47)
[2023-06-19] MEDS ORDERED: BENZOCAINE/MENTHOL (CHLORASEPTIC ) LOZENGE MM PRN (08:47)
[2023-06-19] MEDS ORDERED: MAG HYDROX/AL HYDROX/SIMETH 30 ML UNIT-DOSE CUP PO PRN (08:47)
[2023-06-19] MEDS ORDERED: IBUPROFEN 600 MG TABLET (FP) PO PRN (08:47)
[2023-06-19] MEDS ORDERED: ACETAMINOPHEN 325 MG TABLET (FP) PO PRN (08:47)
[2023-06-19] MEDS ORDERED: POLYETHYLENE GLYCOL (HEALTHYLAX) 3350 17 GM PACKET PO PRN (08:47)
[2023-06-19] MEDS ORDERED: guaiFENesin 600 MG TABLET.ER (FP) PO PRN (08:47)
[2023-06-19] MEDS ORDERED: IBUPROFEN 400 MG TABLET (FP) PO PRN (08:47)
[2023-06-19 08:56] VITALS: BMI 23.6
[2023-06-19] MEDS: CARVEDILOL 3.125 MG TABLET (FP) PO SCH (10:45)
[2023-06-19] MEDS: APIXABAN 5 MG TABLET PO SCH (10:45)
[2023-06-19] MEDS: PRENATAL VITAMINS W/ FOLIC ACID TABLET (FP) PO SCH (10:45)
[2023-06-19] MEDS: FUROSEMIDE 40 MG TABLET (FP) PO SCH (10:46)
[2023-06-19] MEDS: SACUBITRIL/VALSARTAN 49 MG-51 MG TABLET PO SCH (11:25)
[2023-06-19] MEDS: SPIRONOLACTONE 25 MG TABLET PO SCH (11:26)
[2023-06-19] MEDS: EMPAGLIFLOZIN (JARDIANCE) 10 MG TABLET PO SCH (15:07)
[2023-06-19] MEDS: THIAMINE HCL 100 MG TABLET (FP) PO SCH (21:10)
[2023-06-19] MEDS: MELATONIN 5 MG TABLETS PO SCH (21:10)
[2023-06-19] MEDS: QUEtiapine FUMARATE 25 MG TABLET PO SCH (21:12)
[2023-06-27] MEDS: NALTREXONE HCL 50 MG TABLET PO ONE (14:56)
[2023-06-27] MEDS: BACLOFEN 10 MG TABLET (FP) PO SCH (21:50)
[2023-06-28] MEDS: NALTREXONE HCL 50 MG TABLET PO SCH (10:10)
[2023-06-29] MEDS ORDERED: LACTULOSE 20 GM/30 ML UDC (FOR ORAL USE ONLY) PO PRN (11:10)
[2023-06-30] MEDS: NALTREXONE MICROSPHERES (VIVITROL) 380 MG DISP.SYRIN IM ONE (19:14)
[2023-06-30 21:03] VITALS: RESP 17
[2023-07-01 06:57] VITALS: TEMP 97.3
[2023-07-01 09:09] VITALS: BP 117/79; PULSE 82
== END 2023-07-01 09:10 | disposition home or self-care (01) | DRG 895 ==
LOC: YASAS 08:16 → Y3E 09:35
PROVIDERS: ADMIT Allergy & Immunology; ATTEND Psychiatry & Neurology Pain Medicine
PROC: HZ42ZZZ Group Counseling for Substance Abuse Treatment, Cognitive-Behavioral (ICD-10-PCS; principal; 2023-06-19)
DX: F10.20 Alcohol dependence, uncomplicated (principal); F14.20 Cocaine dependence, uncomplicated; F19.282 Other psychoactive substance dependence with psychoactive substance-induced sleep disorder; F17.210 Nicotine dependence, cigarettes, uncomplicated; F19.24 Other psychoactive substance dependence with psychoactive substance-induced mood disorder; G47.00 Insomnia, unspecified; I25.10 Atherosclerotic heart disease of native coronary artery without angina pectoris; I11.0 Hypertensive heart disease with heart failure; I50.9 Heart failure, unspecified; G47.30 Sleep apnea, unspecified; J45.909 Unspecified asthma, uncomplicated; Z95.810 Presence of automatic (implantable) cardiac defibrillator; Z86.19 Personal history of other infectious and parasitic diseases; Z88.0 Allergy status to penicillin
CPT/HCPCS: 87811; J0475; J2315

== ENCOUNTER 2023-10-30 08:11 | Inpatient (IN) | payer OTHER ==
[2023-10-30 08:35] VITALS: BMI 22.4
[2023-10-30] MEDS ORDERED: BENZOCAINE/MENTHOL (CHLORASEPTIC ) LOZENGE MM PRN (08:53)
[2023-10-30] MEDS ORDERED: NICOTINE POLACRILEX 2 MG GUM BUC PRN (08:53)
[2023-10-30] MEDS ORDERED: BENZONATATE 200 MG CAPSULE PO PRN (08:53)
[2023-10-30] MEDS ORDERED: NICOTINE POLACRILEX 2 MG LOZENGE BC PRN (08:53)
[2023-10-30] MEDS ORDERED: guaiFENesin 600 MG TABLET.ER (FP) PO PRN (08:53)
[2023-10-30] MEDS ORDERED: MAGNESIUM HYDROX 2400MG/30ML ORAL SUSPENSION 30 ML CUP PO PRN (08:53)
[2023-10-30] MEDS ORDERED: MAG HYDROX/AL HYDROX/SIMETH 30 ML UNIT-DOSE CUP PO PRN (08:53)
[2023-10-30] MEDS ORDERED: LOPERAMIDE HCL 2 MG CAPSULE PO PRN (08:53)
[2023-10-30] MEDS ORDERED: POLYETHYLENE GLYCOL (HEALTHYLAX) 3350 17 GM PACKET PO PRN (08:53)
[2023-10-30] MEDS ORDERED: ACETAMINOPHEN 325 MG TABLET (FP) PO PRN (08:53)
[2023-10-30] MEDS ORDERED: PRENATAL VITAMINS W/ FOLIC ACID TABLET (FP) PO ONE (09:59)
[2023-10-30] MEDS: PRENATAL VITAMINS W/ FOLIC ACID TABLET (FP) PO SCH (10:01)
[2023-10-30] MEDS: CARVEDILOL 3.125 MG TABLET (FP) PO SCH (10:01)
[2023-10-30] MEDS: SPIRONOLACTONE 25 MG TABLET PO SCH (10:02)
[2023-10-30] MEDS: APIXABAN 5 MG TABLET PO SCH (10:02)
[2023-10-30] MEDS: EMPAGLIFLOZIN (JARDIANCE) 10 MG TABLET PO SCH (10:13)
[2023-10-30 21:05] LABS: URINE APPEARANCE CLEAR; URINE BILIRUBIN NEGATIVE (NEGATIVE); URINE COLOR YELLOW; URINE GLUCOSE (UA) 3+ (NEGATIVE); URINE KETONE NEGATIVE (NEGATIVE); URINE LEUK ESTERASE NEGATIVE (NEGATIVE); URINE NITRITE NEGATIVE (NEGATIVE); URINE PROTEIN NEGATIVE (NEGATIVE); URINE UROBILINOGEN 0.2 mg/dL (0.2-1.0)
[2023-10-30] MEDS: MELATONIN 5 MG TABLETS PO SCH (22:28)
[2023-10-30] MEDS: THIAMINE 100 MG TABLET PO SCH (22:28)
[2023-10-31] MEDS: EMPAGLIFLOZIN (JARDIANCE) 10 MG TABLET PO SCH (06:24)
[2023-10-31 11:34] LABS: POTASSIUM 4.2 mmol/L (3.5-5.1)
[2023-10-31 11:39] LABS: CALCIUM 8.4 mg/dL (8.5-10.1)
[2023-10-31 11:43] LABS: CREATININE 0.8 mg/dL (0.55-1.3)
[2023-10-31 11:45] LABS: BILIRUBIN,TOTAL 0.5 mg/dL (0.2-1); TOT PROT 5.6 g/dl (6.4-8.2)
[2023-10-31 11:53] LABS: HEMATOCRIT 40.8 % (35.4-49); HEMOGLOBIN 13.4 GM/dL (11.7-16.9); MCH 29.9 pg (25.7-33.7); MCHC 32.8 g/dl (32.0-35.9); MEAN CELL VOLUME 91.1 fl (80-96); MEAN PLT VOLUME 8.7 fl (7.5-11.1); PLATELET COUNT 146 10^3/uL (134-434); RBC 4.49 M/mm3 (4.00-5.60); RDW 13.8 % (11.9-15.9); WHITE BLOOD COUNT 9.1 K/mm3 (4.0-10.0)
[2023-10-31 12:39] VITALS: BP 130/95; PULSE 74; RESP 18; TEMP 97.8
== END 2023-10-31 17:35 | disposition left against medical advice (07) | DRG 894 ==
LOC: YASAS 08:11 → Y3NR 11:39 → Y3E 10-31 11:57
PROVIDERS: ADMIT Allergy & Immunology; ATTEND Psychiatry & Neurology Pain Medicine
PROC: HZ42ZZZ Group Counseling for Substance Abuse Treatment, Cognitive-Behavioral (ICD-10-PCS; principal; 2023-10-30)
DX: F14.20 Cocaine dependence, uncomplicated (principal); Z59.01 Sheltered homelessness; F12.20 Cannabis dependence, uncomplicated; F17.210 Nicotine dependence, cigarettes, uncomplicated; I11.0 Hypertensive heart disease with heart failure; I50.9 Heart failure, unspecified; I25.10 Atherosclerotic heart disease of native coronary artery without angina pectoris; J45.909 Unspecified asthma, uncomplicated; G47.00 Insomnia, unspecified; E11.9 Type 2 diabetes mellitus without complications; K21.9 Gastro-esophageal reflux disease without esophagitis; E78.5 Hyperlipidemia, unspecified; Z79.84 Long term (current) use of oral hypoglycemic drugs; Z86.19 Personal history of other infectious and parasitic diseases; Z95.810 Presence of automatic (implantable) cardiac defibrillator; Z79.01 Long term (current) use of anticoagulants
CPT/HCPCS: 36415; 80053; 80305; 80307; 81003; 85027; 86593; 86780; 87811

== ENCOUNTER 2023-12-10 15:23 | Inpatient (IN) | payer OTHER ==
[2023-12-10 16:00] VITALS: BMI 23.1
[2023-12-10] MEDS ORDERED: hydrOXYzine PAMOATE 25 MG CAPSULE (FP) PO PRN (17:20)
[2023-12-10] MEDS ORDERED: MAG HYDROX/AL HYDROX/SIMETH 30 ML UNIT-DOSE CUP PO PRN (17:20)
[2023-12-10] MEDS ORDERED: MAGNESIUM HYDROX 2400MG/30ML ORAL SUSPENSION 30 ML CUP PO PRN (17:20)
[2023-12-10] MEDS ORDERED: ACETAMINOPHEN 325 MG TABLET (FP) PO PRN (17:20)
[2023-12-10] MEDS ORDERED: BENZOCAINE/MENTHOL (CHLORASEPTIC ) LOZENGE MM PRN (17:20)
[2023-12-10] MEDS ORDERED: POLYETHYLENE GLYCOL (HEALTHYLAX) 3350 17 GM PACKET PO PRN (17:20)
[2023-12-10] MEDS ORDERED: LOPERAMIDE HCL 2 MG CAPSULE PO PRN (17:20)
[2023-12-10] MEDS ORDERED: IBUPROFEN 600 MG TABLET (FP) PO PRN (17:20)
[2023-12-10] MEDS ORDERED: NALOXONE (NARCAN) HCL 4 MG/0.1 ML SPRAY NS PRN (17:20)
[2023-12-10] MEDS ORDERED: BENZONATATE 200 MG CAPSULE PO PRN (17:20)
[2023-12-10] MEDS ORDERED: guaiFENesin 600 MG TABLET.ER (FP) PO PRN (17:20)
[2023-12-10] MEDS ORDERED: IBUPROFEN 400 MG TABLET (FP) PO PRN (17:20)
[2023-12-10] MEDS: NALOXONE (NYS OPIOID OVERDOSE PROGRAM) 4 MG/0.1 ML SPRAY NS ONE (18:28)
[2023-12-10] MEDS: CARVEDILOL 3.125 MG TABLET (FP) PO ONE (19:36)
[2023-12-10] MEDS: amLODIPine BESYLATE 5 MG TABLET (FP) PO ONE (19:36)
[2023-12-10] MEDS: MELATONIN 5 MG TABLETS PO SCH (21:13)
[2023-12-10] MEDS: THIAMINE 100 MG TABLET PO SCH (21:13)
[2023-12-10] MEDS: APIXABAN 5 MG TABLET PO SCH (21:14)
[2023-12-10] MEDS: SACUBITRIL/VALSARTAN 49 MG-51 MG TABLET PO SCH (23:37)
[2023-12-11] MEDS: INSULIN ASPART SLIDING SCALE (NOVOLOG) 1 VIAL SQ SCH (06:19)
[2023-12-11] MEDS: EMPAGLIFLOZIN (JARDIANCE) 10 MG TABLET PO SCH (08:07)
[2023-12-11] MEDS: PRENATAL VITAMINS W/ FOLIC ACID TABLET (FP) PO SCH (09:17)
[2023-12-11] MEDS: CARVEDILOL 3.125 MG TABLET (FP) PO SCH (09:18)
[2023-12-11] MEDS: SPIRONOLACTONE 25 MG TABLET PO SCH (11:55)
[2023-12-11 12:12] LABS: PH,URINE 5.5 (5.0-8.0); URINE APPEARANCE CLEAR; URINE BILIRUBIN NEGATIVE (NEGATIVE); URINE COLOR YELLOW; URINE GLUCOSE (UA) 3+ (NEGATIVE); URINE KETONE NEGATIVE (NEGATIVE); URINE LEUK ESTERASE NEGATIVE (NEGATIVE); URINE NITRITE NEGATIVE (NEGATIVE); URINE PROTEIN NEGATIVE (NEGATIVE); URINE UROBILINOGEN 0.2 mg/dL (0.2-1.0)
[2023-12-11 12:12] LABS: HEMATOCRIT 47.3 % (35.4-49); HEMOGLOBIN 15.4 GM/dL (11.7-16.9); MCH 29.7 pg (25.7-33.7); MCHC 32.5 g/dl (32.0-35.9); MEAN CELL VOLUME 91.4 fl (80-96); MEAN PLT VOLUME 8.9 fl (7.5-11.1); PLATELET COUNT 199 10^3/uL (134-434); RBC 5.18 M/mm3 (4.00-5.60); RDW 13.1 % (11.9-15.9); WHITE BLOOD COUNT 10.1 K/mm3 (4.0-10.0)
[2023-12-11] MEDS: FLU VACCINE (FLULAVAL) PF 45 MCG/0.5 ML SYRINGE 2024-2025 IM ONE (12:58)
[2023-12-11 14:05] LABS: SYPHILIS W/ RPR CONF REACTIVE (NONREACTIVE)
[2023-12-11 16:21] LABS: CHLORIDE 104 mmol/L (98-107); POTASSIUM 4.3 mmol/L (3.5-5.1); SODIUM 139 mmol/L (136-145)
[2023-12-11 16:25] LABS: ALBUMIN 3.5 g/dl (3.4-5.0)
[2023-12-11 16:26] LABS: ANION GAP 5 mmol/L (4-13); BLOOD UREA NITROGEN 15.5 mg/dL (7-18); CALCIUM 8.6 mg/dL (8.5-10.1); CO2 30 mmol/L (21-32); GLUCOSE,RANDOM 100 mg/dL (74-106)
[2023-12-11 16:28] LABS: CREATININE 0.8 mg/dL (0.55-1.3); SGOT/AST 21 U/L (15-37); SGPT/ALT 30 U/L (13-61)
[2023-12-11 16:50] LABS: BILIRUBIN,TOTAL 0.3 mg/dL (0.2-1); TOT PROT 6.9 g/dl (6.4-8.2)
[2023-12-11 16:51] LABS: ALK PHOS 124 U/L (45-117)
[2023-12-11] MEDS: QUEtiapine FUMARATE 25 MG TABLET PO SCH (21:39)
[2023-12-12] MEDS: LISINOPRIL 20 MG TABLET PO SCH (15:44)
[2023-12-12] MEDS: BACLOFEN 10 MG TABLET (FP) PO SCH (21:20)
[2023-12-23] MEDS ORDERED: LISINOPRIL 20 MG TABLET PO SCH ×2 (11:02→11:05)
[2023-12-23] MEDS: SACUBITRIL/VALSARTAN 49 MG-51 MG TABLET PO SCH (12:47)
[2023-12-24 06:44] VITALS: RESP 20; TEMP 97.3
[2023-12-24 08:58] VITALS: BP 119/91; PULSE 82
[2023-12-24] MEDS: NALOXONE (NYS OPIOID OVERDOSE PROGRAM) 4 MG/0.1 ML SPRAY NS PRN (09:16)
== END 2023-12-18 09:25 | disposition home or self-care (01) | DRG 895 ==
LOC: YASAS 15:23 → Y3E 18:18
PROVIDERS: ADMIT Allergy & Immunology; ATTEND Psychiatry & Neurology Pain Medicine
PROC: HZ42ZZZ Group Counseling for Substance Abuse Treatment, Cognitive-Behavioral (ICD-10-PCS; principal; 2023-12-10)
DX: F14.10 Cocaine abuse, uncomplicated (principal); F19.282 Other psychoactive substance dependence with psychoactive substance-induced sleep disorder; I42.9 Cardiomyopathy, unspecified; Z59.01 Sheltered homelessness; F12.20 Cannabis dependence, uncomplicated; F17.210 Nicotine dependence, cigarettes, uncomplicated; G47.00 Insomnia, unspecified; I11.0 Hypertensive heart disease with heart failure; I50.9 Heart failure, unspecified; E78.5 Hyperlipidemia, unspecified; E11.9 Type 2 diabetes mellitus without complications; Z79.84 Long term (current) use of oral hypoglycemic drugs; Z95.810 Presence of automatic (implantable) cardiac defibrillator; Z79.01 Long term (current) use of anticoagulants
CPT/HCPCS: 36415; 80053; 80305; 80307; 81003; 82962; 85027; 86593; 86780; 86803; 87522; 90656; 93005; 93010; G0008; J0475